=== PATIENT | male | born 1960 | race African-American/Black ===

== ENCOUNTER 2022-06-15 14:08 | Emergency (ER) | payer OTHER ==
[~2022-06-15] VITALS: Ht 180.3 cm; Wt 78.0 kg
[2022-06-15 15:14] LABS: BASOPHILS % 0.5 % (0.0-2.0); EOSINOPHILS % 0.1 % (0.0-5.0); HEMATOCRIT. 42.6 % (42.0-52.0); LYMPHOCYTES % 10.6 % (20.0-50.0); MEAN CORPUSCULAR HEMOGLOBIN 29.8 pg (28.0-32.0); MEAN CORPUSCULAR VOLUME 90.9 fL (80.0-94.0); MEAN PLATELET VOLUME 10.2 fl (7.4-10.4); MONOCYTES % 6.9 % (2.0-8.0); NEUTROPHILS % 81.9 % (40.0-76.0); PLATELET 161 x1000/uL (130-400); RED BLOOD CELL COUNT 4.69 mill/uL (4.7-6.1); RED CELL DISTRIBUTION WIDTH 14.3 % (11.6-14.6)
[2022-06-15 15:30] LABS: CHLORIDE 106 mEq/L (98-107)
[2022-06-15 15:36] LABS: ETHANOL BLOOD < 10 mg/dL
[2022-06-15 20:38] LABS: *AMPHETAMINES SCREEN URINE NEGATIVE (NEGATIVE); *BARBITURATES SCREEN URINE NEGATIVE (NEGATIVE); *BENZODIAZEPINES SCREEN URINE NEGATIVE (NEGATIVE); *COCAINE SCREEN URINE PRESUMTIVE POSITIVE (NEGATIVE); CANNABINOID URINE SCREEN NEGATIVE (NEGATIVE); METHADONE URINE SCREEN NEGATIVE (NEGATIVE); OPIATES URINE SCREEN NEGATIVE (NEGATIVE); PHENCYCLIDINE URINE SCREEN NEGATIVE (NEGATIVE)
[2022-06-16] MEDS: OLANZAPINE 5MG TABLET ODT PO SCH ×2 (13:44→20:08)
[2022-06-16 21:27] VITALS: BP 107/75
== END 2022-06-16 22:31 ==
LOC: ER 14:08
DX: R45.851 Suicidal ideations (principal); I49.9 Cardiac arrhythmia, unspecified; Z20.822 Contact with and (suspected) exposure to COVID-19
CPT/HCPCS: 36415; 80048; 80305; 80307; 80320; 80329; 85025; 87426; 93005; 99285; C9803; G0480